=== PATIENT | female | born 1965 | race Caucasian/White ===

== ENCOUNTER → 2017-08-18 | Day surgery (SDC) | payer SELFPAY ==
[~2017-08-18] VITALS: Ht 170.2 cm; Wt 64.4 kg
--- NOTE | 2017-08-18 15:55 | Operative Report ---
Operative/Inv Procedure Report Surgery Date: 08/18/17 Name of Procedure: Exchange bilateral silicone breast implants with the bilateral breast lift Pre-Operative Diagnosis: Breast ptosis question ruptured implants Post-Operative Diagnosis: Ruptured implants breast ptosis Estimated Blood Loss: 50ml to 100ml Surgeon/Sr Account Executive: Thomas Lester MD Anesthesia: general endotracheal tube Operative/Procedure Note Note: Patient was counseled in regards to the procedure the alternatives the risks and the expected outcomes as relates to her request for surgical intervention to treat breast ptosis will be deformity and possibly bilateral ruptured asymptomatic implants. Had an extensive discussion with the patient again this morning about the procedure. We talked about the risks of definite visible scarring from the breast lift possibly unsightly or symptomatic infection bleeding pain numbness loss of nipple areolar sensation or tissue and the possibility of needing explantation due to infection or complications. We talked about the risk of capsular contracture and rupture. Patient was marked in the standing position in the measurements were checked multiple times. She was marked for a circum-vertical lift the small amount of resection planned inferiorly as was discussed and accepted by the patient. She is choosing a slightly smaller implant as well. She was brought to the operating room after signing informed consent. Venodyne's were placed on the legs general anesthesia was established intravenous antibiotics were given and the chest was prepped and draped in usual sterile fashion. The vertical portion of the inferior breast was incised and the capsule was identified inferiorly. It was ruptured on both sides. 3 L of pulse lavage irrigation was used after debridement with gauze sponges. Triple antibiotic and Betadine was also used to neck capsules were free of any silicone. New drapes were placed on top the skin was prepped Entrance reused and gloves were changed. Capsulorrhaphy was performed on the left no touch technique consisting of a Prabhjot funnel multiple glove changes and I prepped the skin as well as triple antibiotic and Betadine irrigation for the implants. Stabilization was carried out of the previous planned [place]. 3 layer closure was carried out of the inferior incision and a 2 layer closure of the NAC. She was put in the sitting position to assess adequacy of symmetry and it was acceptable. Steri-Strips applied to the incisions. 325 smooth high profile [place] silicone implants were used
== END ==
LOC: STS 02:26
DX: Z41.1 Encounter for cosmetic surgery (principal); T85.49XA Other mechanical complication of breast prosthesis and implant, initial encounter; N64.81 Ptosis of breast
CPT/HCPCS: C9399; J0131; J0690; J1580; J2250; Q9968